=== PATIENT | male | born 1990 | race African-American/Black ===

== ENCOUNTER 2018-09-30 14:17 | Emergency (ER) | payer MEDICAID ==
[~2018-09-30] VITALS: Ht 165.1 cm; Wt 63.5 kg
--- NOTE | 2018-09-30 14:32 | NUR ---
PT A/OX4, PRESENTS TO THE ER C/O GENERALIZED BODY PAIN THAT STARTED TODAY AROUND 1300, NON-PROVOKED, SHOOTING/ACHING IN QUALITY, DOES NOT RADIATE, 8/10, CONSTANT. PT REPORTS HX OF SICKLE CELL DISEASE. VSS. PT DENIES C/P, SOB, N/V/D, DIZZINESS, HEADACHE.
[2018-09-30] MEDS ORDERED: ONDANSETRON 4 MG/2 ML VIAL IV ONE (14:45)
[2018-09-30] MEDS ORDERED: IV NORMAL SALINE 1000 ML BAG IV ONE (14:45)
[2018-09-30] MEDS ORDERED: HYDROMORPHONE 1 MG/1 ML DISP.SYRIN IV ONE ×2 (14:45→15:45)
--- NOTE | 2018-09-30 14:47 | NUR ---
PATIENT WAS MSE BY DR ALICEA IN ROOM 05A.
[2018-09-30] MEDS ORDERED: HYDROMORPHONE 1 MG/1 ML DISP.SYRIN ONE ×2 (14:48→15:48)
[2018-09-30] MEDS ORDERED: ONDANSETRON 4 MG/2 ML VIAL ONE (14:48)
[2018-09-30 15:18] LABS: EOSINOPHILS % (AUTO) 0.7 % (0.0-7.0); HEMATOCRIT 29.2 % (36.7-47.1); HEMOGLOBIN 9.4 g/dL (12.5-16.3); LYMPHOCYTES # (AUTO) 2.5 K/uL (20.0-40.0); LYMPHOCYTES % (AUTO) 63.1 % (20.5-51.5); MEAN CORPUSCULAR HEMOGLOBIN 24.4 uug (23.8-33.4); MEAN CORPUSCULAR HGB CONC 32 g/dL (32.5-36.3); MEAN CORPUSCULAR VOLUME 75.4 fL (73.0-96.2); MONOCYTES # (AUTO) 0.1 K/uL (2.0-10.0); MONOCYTES % (AUTO) 2.2 % (0.0-11.0); NEUTROPHILS # (AUTO) 1.3 K/uL (1.8-8.9); PLATELET COUNT (AUTO) 152 K/uL (152-348); RED BLOOD CELL COUNT(AUTO) 3.87 MIL/uL (4.06-5.63)
[2018-09-30 15:24] LABS: BILIRUBIN,DIRECT 0.2 mg/dL (0.0-0.2); CREATININE 0.9 mg/dL (0.6-1.3); POTASSIUM 3.8 mmol/L (3.5-5.1); TOTAL PROTEIN, SERUM 6.9 g/dL (6.4-8.2)
--- NOTE | 2018-09-30 16:19 | NUR ---
Patient discharged to home in stable conditon. Written and verbal after care instructions given. Patient verbalizes understanding of instructions. ALL BELONGINGS W/ PT. PT SELF-AMBULATED W/O DIFFICULTY. 20G IV ACCESS IN LAC REMOVED PRIOR TO D/C - INNER CANNULA INTACT. PT WILL BE DRIVEN HOME IN PRIVATE VEHICLE BY SIGNIFICANT OTHER.
[2018-09-30 16:21] VITALS: BP 131/75
== END 2018-09-30 16:26 | disposition home or self-care (01) ==
LOC: ER 14:17
DX: D57.1 Sickle-cell disease without crisis (principal); Z88.8 Allergy status to other drugs, medicaments and biological substances
CPT/HCPCS: 36415; 71045; 80048; 80076; 83615; 85025; 96374; 96375; 96376; 99284; J1170 ×2; J2405; A4663; J7030

== ENCOUNTER 2019-04-23 21:42 | Inpatient (IN) | payer MEDICAID, OTHER ==
[~2019-04-23] VITALS: Ht 165.1 cm; Wt 63.5 kg
[2019-04-23] MEDS ORDERED: MORPHINE SULFATE 4 MG/1 ML DISP.SYRIN ONE (22:26)
[2019-04-23] MEDS ORDERED: ONDANSETRON 4 MG/2 ML VIAL ONE (22:26)
[2019-04-23] MEDS ORDERED: ONDANSETRON 4 MG/2 ML VIAL IV ONE (22:30)
[2019-04-23] MEDS ORDERED: IV NORMAL SALINE 1000 ML BAG IV ONE (22:30)
[2019-04-23] MEDS ORDERED: MORPHINE SULFATE 2 MG/1 ML DISP.SYRIN IV ONE (22:30)
[2019-04-23 22:44] LABS: BASOPHILS % (AUTO) 0.5 % (0.0-2.0); EOSINOPHILS # (AUTO) 0.1 K/uL (0.0-0.7); EOSINOPHILS % (AUTO) 2.2 % (0.0-7.0); HEMATOCRIT 34.3 % (36.7-47.1); HEMOGLOBIN 11.1 g/dL (12.5-16.3); LYMPHOCYTES # (AUTO) 0.8 K/uL (20.0-40.0); LYMPHOCYTES % (AUTO) 17.3 % (20.5-51.5); MEAN CORPUSCULAR HEMOGLOBIN 26.1 uug (23.8-33.4); MEAN CORPUSCULAR HGB CONC 33 g/dL (32.5-36.3); MEAN CORPUSCULAR VOLUME 80.5 fL (73.0-96.2); MONOCYTES # (AUTO) 0.4 K/uL (2.0-10.0); MONOCYTES % (AUTO) 9.8 % (0.0-11.0); NEUTROPHILS # (AUTO) 3.1 K/uL (1.8-8.9); NEUTROPHILS % (AUTO) 70.2 % (38.5-71.5); PLATELET COUNT (AUTO) 188 K/uL (152-348); RED BLOOD CELL COUNT(AUTO) 4.26 MIL/uL (4.06-5.63); WHITE BLOOD COUNT (AUTO) 4.4 K/uL (3.6-10.2)
[2019-04-23 22:54] LABS: BILIRUBIN,DIRECT 0.2 mg/dL (0.0-0.2); BILIRUBIN,TOTAL 0.9 mg/dL (0.2-1.0); POTASSIUM 4.1 mmol/L (3.5-5.1); TOTAL PROTEIN, SERUM 7.5 g/dL (6.4-8.2)
--- NOTE | 2019-04-23 23:25 | NUR ---
LAB CALLED: STATES PT IS NEG FOR SICKLE CELL TRAIT
[2019-04-23 23:34] LABS: LYMPHOCYTES % (MANUAL) 45 % (20-40); MONOCYTES % (MANUAL) 14 % (2-10); NEUTROPHILS % (MANUAL) 41 % (42-75)
[2019-04-23] MEDS ORDERED: SWABABLE VALVE TRANSFER SET EA MC ONE (23:36)
[2019-04-23] MEDS ORDERED: IOHEXOL 300MG/ML 100 ML INFUS..BTL ONE (23:36)
[2019-04-23] MEDS ORDERED: IV NORMAL SALINE 250 ML IV ONE (23:36)
[2019-04-24 00:23] LABS: *BILIRUBIN,URIN NEGATIVE (NEGATIVE); *BLOOD, URINE NEGATIVE (NEGATIVE); *CLARITY,URINE CLEAR (CLEAR); *COLOR,URINE YELLOW (YELLOW); *KETONES,URINE NEGATIVE (NEGATIVE); *UROBILINOGEN,URINE 0.2 E.U./dl (NORMAL); LEUKOCYTE ESTERASE ,URINE TRACE (NEGATIVE); NITRITE, URINE NEGATIVE (NEGATIVE); UGLUCOSE NEGATIVE (NEGATIVE)
[2019-04-24 00:32] LABS: BACTERIA,URINE FEW /HPF (NONE SEEN); RBC,URINE 0-3 /HPF (0-3); SQUAMOUS EPITHELIAL CELL,UR FEW /HPF (NONE SEEN)
[2019-04-24] MEDS ORDERED: HYDROMORPHONE 1 MG/1 ML DISP.SYRIN ONE ×2 (00:43→01:46)
[2019-04-24] MEDS ORDERED: HYDROMORPHONE 1 MG/1 ML DISP.SYRIN IV ONE ×3 (00:45→02:45)
[2019-04-24] MEDS ORDERED: PIPERACILLIN/TAZOBACTAM/D5W 50 ML IV ONE (00:55)
[2019-04-24] MEDS ORDERED: PIPERACILLIN SODIUM/TAZOBACTAM 3.375 G in IV DEXTROSE 5% 50 ML IV ONE (01:00)
[2019-04-24] MEDS ORDERED: IV NORMAL SALINE 1000 ML BAG IV ONE (01:00)
[2019-04-24] MEDS ORDERED: ONDANSETRON 4 MG/2 ML VIAL IV ONE (01:45)
[2019-04-24] MEDS ORDERED: ONDANSETRON 4 MG/2 ML VIAL ONE ×2 (01:46→01:51)
--- NOTE | 2019-04-24 02:10 | NUR ---
Pt. admitted to [facility], under care of BERNA RAGLAND DNP Belongs List completed
[2019-04-24] MEDS ORDERED: PROM118S PO (02:18)
[2019-04-24] MEDS ORDERED: ONDANSETRON 4 MG/2 ML VIAL IV PRN (02:30)
[2019-04-24] MEDS ORDERED: ACETAMINOPHEN 325 MG TABLET PO PRN (02:30)
[2019-04-24] MEDS ORDERED: HYDROMORPHONE 2 MG/1 ML DISP.SYRIN ONE (02:39)
[2019-04-24 02:56] VITALS: BP 128/92
--- NOTE | 2019-04-24 03:00 | NUR ---
ADMITTED,ALERT X4 COMPLAINING OF RIGHT FLANK PAIN,GIRLFRIEND AT BEDSIDE. ATE HUNGRY. COMPLAINED OF ABDOMINAL PAIN ,DILAUDID 1 MG GIVEN, IN NO ACUTE DISTRESS,
[2019-04-24] MEDS ORDERED: PIPERACILLIN SODIUM/TAZO 3.375 GM VIAL ONE (03:26)
[2019-04-24] MEDS: IV NS 1000 ML 1,000 ML IV PRN ×2 (04:25→16:57)
[2019-04-24] MEDS: HYDROMORPHONE 1 MG/1 ML DISP.SYRIN IV PRN ×4 (04:26→15:05)
--- NOTE | 2019-04-24 05:12 | NUR ---
UA SENT TO LAB
[2019-04-24] MEDS ORDERED: PIPERACILLIN SODIUM/TAZOBACTAM 3.375 G in IV DEXTROSE 5% 50 ML IV SCH (06:00)
[2019-04-24 07:29] LABS: MAGNESIUM 2.1 mg/dL (1.8-2.4); PHOSPHOROUS 3.1 mg/dL (2.5-4.9); POTASSIUM 3.6 mmol/L (3.5-5.1)
[2019-04-24 07:32] LABS: HEMATOCRIT 31.9 % (36.7-47.1); HEMOGLOBIN 10.3 g/dL (12.5-16.3); MEAN CORPUSCULAR HEMOGLOBIN 26.3 uug (23.8-33.4); MEAN CORPUSCULAR HGB CONC 32 g/dL (32.5-36.3); MEAN CORPUSCULAR VOLUME 81.5 fL (73.0-96.2); PLATELET COUNT (AUTO) 174 K/uL (152-348); RED BLOOD CELL COUNT(AUTO) 3.91 MIL/uL (4.06-5.63); WHITE BLOOD COUNT (AUTO) 4.1 K/uL (3.6-10.2)
[2019-04-24 07:39] LABS: THYROID STIMULATING HORMONE 3.084 mIU/mL (0.358-3.740)
[2019-04-24 10:10] LABS: BASOPHILS % (MANUAL) 1 % (0-2); EOSINOPHILS % (MANUAL) 2 % (0-8); LYMPHOCYTES % (MANUAL) 43 % (20-40); NEUTROPHILS % (MANUAL) 46 % (42-75)
[2019-04-24 10:11] LABS: MONOCYTES % (MANUAL) 8 % (2-10)
[2019-04-24 11:39] VITALS: BP 133/97
[2019-04-24] MEDS: PIPERACILLIN/TAZOBACTAM/D5W 3.375 G in IV DEXTROSE 5% 50 ML IV SCH ×2 (13:17→21:30)
[2019-04-24 15:46] VITALS: BP 147/100
[2019-04-24] MEDS: ONDANSETRON 4 MG/2 ML VIAL IV PRN (16:46)
[2019-04-24] MEDS: HYDROMORPHONE 2 MG/1 ML DISP.SYRIN IV PRN ×2 (18:15→21:24)
[2019-04-24 20:27] VITALS: BP 110/60
[2019-04-25] MEDS: ONDANSETRON 4 MG/2 ML VIAL IV PRN ×5 (00:21→21:52)
[2019-04-25] MEDS: HYDROMORPHONE 2 MG/1 ML DISP.SYRIN IV PRN ×8 (00:24→23:46)
[2019-04-25] MEDS ORDERED: SUCRALFATE 1 G TABLET PO SCH (05:15)
[2019-04-25] MEDS: PIPERACILLIN/TAZOBACTAM/D5W 3.375 G in IV DEXTROSE 5% 50 ML IV SCH ×5 (05:40→22:00)
[2019-04-25 05:49] VITALS: BP 134/96
[2019-04-25] MEDS: PANTOPRAZOLE SODIUM 40 MG TABLET.DR PO SCH (06:25)
[2019-04-25] MEDS: SUCRALFATE 1 G/10 ML LIQUID UDC PO SCH ×4 (06:25→20:35)
--- NOTE | 2019-04-25 08:40 | NUR ---
Received patient in Bed, sleeping. No signs of Distress noted. No SOB. Pain medication was last given at 0750. All needs attended and met. call light within easy reach. Will continue to monitor.
[2019-04-25 11:51] VITALS: BP 138/98
[2019-04-25] MEDS: IV NS 1000 ML 1,000 ML IV PRN (11:57)
[2019-04-25 16:13] VITALS: BP 114/65
--- NOTE | 2019-04-25 18:18 | NUR ---
Patient in bed, awake and verbally responsive. no signs of Distress noted. Pain medication given as ordered. All due medications given as ordered. kept comfortable. Will Endorse to Oncoming Nurse.
[2019-04-25 20:49] VITALS: BP 128/94
[2019-04-25] MEDS ORDERED: METOCLOPRAMIDE HCL 10 MG/2 ML VIAL IV PRN (23:30)
--- NOTE | 2019-04-25 23:30 | NUR ---
Dr. Palma notified of blood clots in emesis and patient refusal for Zosyn tonight despite education. new order for Reglan given, however patient refused because of adverse reactions. emesis is subsided and patient is not requesting any mediations at this time for his emesis/nausea.
[2019-04-26 04:00] VITALS: BP 128/76
[2019-04-26] MEDS: HYDROMORPHONE 2 MG/1 ML DISP.SYRIN IV PRN ×8 (04:31→23:44)
--- NOTE | 2019-04-26 05:53 | NUR ---
patient slept intermittently throughout night. no signs of acute distress and v/s stable throughout shift. all medication administered with no adverse effects except refusal of one dose of Zosyn due last night- Dr. Palma made aware. morning Zosyn administered without refusal. Dilaudid administered 3x throughout shift. safety and comfort measures provided at all times. will continue to monitor and endorse care to morning nurse.
[2019-04-26] MEDS: PIPERACILLIN/TAZOBACTAM/D5W 3.375 G in IV DEXTROSE 5% 50 ML IV SCH ×3 (06:00→21:02)
[2019-04-26] MEDS: PANTOPRAZOLE SODIUM 40 MG TABLET.DR PO SCH (06:00)
[2019-04-26] MEDS: IV NS 1000 ML 1,000 ML IV PRN ×2 (06:01→21:15)
[2019-04-26] MEDS: SUCRALFATE 1 G/10 ML LIQUID UDC PO SCH ×4 (06:30→20:40)
--- NOTE | 2019-04-26 06:32 | NUR ---
patient refused AM labs this morning. will endorse to oncoming shift to inform the
--- NOTE | 2019-04-26 07:00 | NUR ---
PATIENT RESTING IN ROOM- COMPLAINTS OF AB PAIN- SAFETY PRECAUTIONS IN PLACE- PIV INFUSING- RECEIVED BEDSIDE SBAR- WILL CONTINUE TO MONITOR REPORT AND RECORD
[2019-04-26] MEDS: ONDANSETRON 4 MG/2 ML VIAL IV PRN ×3 (08:28→21:00)
--- NOTE | 2019-04-26 10:28 | NUR ---
PATIENT HAS CONCERNS IN REGRDS TO ABX- ID HAS SPOKEN WITH PATIETN AND FAMILY IN REGARDS TO THE IMPORTANCE OF ABX- PIV
[2019-04-26 11:53] VITALS: BP 130/87
[2019-04-26 11:58] LABS: POTASSIUM 3.2 mmol/L (3.5-5.1)
[2019-04-26 12:02] LABS: HEMATOCRIT 35.3 % (36.7-47.1); HEMOGLOBIN 11.3 g/dL (12.5-16.3); MEAN CORPUSCULAR HEMOGLOBIN 25.4 uug (23.8-33.4); MEAN CORPUSCULAR HGB CONC 32 g/dL (32.5-36.3); MEAN CORPUSCULAR VOLUME 79.4 fL (73.0-96.2); PLATELET COUNT (AUTO) 189 K/uL (152-348); RED BLOOD CELL COUNT(AUTO) 4.44 MIL/uL (4.06-5.63); WHITE BLOOD COUNT (AUTO) 3.9 K/uL (3.6-10.2)
[2019-04-26] MEDS ORDERED: POTASSIUM CHLORIDE 20 MEQ TAB.PRT.SR PO ONE (12:15)
[2019-04-26 12:47] LABS: LYMPHOCYTES % (MANUAL) 23 % (20-40); MONOCYTES % (MANUAL) 4 % (2-10); NEUTROPHILS % (MANUAL) 73 % (42-75)
[2019-04-26 15:47] VITALS: BP 114/75
[2019-04-26] MEDS: PROMETHAZINE HCL 25 MG TABLET PO PRN ×2 (16:10→23:58)
[2019-04-26] MEDS: MEGESTROL ACETATE 20 MG TABLET PO SCH (18:55)
--- NOTE | 2019-04-26 19:30 | NUR ---
Received patient in bed awake, A&Ox4. No complaints of pain at this time. IV on R FA intact and patent. Safety measures observed. Call light in reach
[2019-04-26 20:20] VITALS: BP 131/80
[2019-04-26] MEDS: ZOLPIDEM 5 MG TABLET PO PRN (23:58)
[2019-04-27] MEDS: ONDANSETRON 4 MG/2 ML VIAL IV PRN ×3 (01:44→16:13)
[2019-04-27] MEDS: HYDROMORPHONE 2 MG/1 ML DISP.SYRIN IV PRN ×11 (01:46→22:35)
[2019-04-27 05:40] VITALS: BP 120/84
[2019-04-27] MEDS: PIPERACILLIN/TAZOBACTAM/D5W 3.375 G in IV DEXTROSE 5% 50 ML IV SCH ×3 (05:43→21:16)
[2019-04-27] MEDS: PANTOPRAZOLE SODIUM 40 MG TABLET.DR PO SCH (06:28)
--- NOTE | 2019-04-27 06:51 | NUR ---
Patient slept intermittently. c/o 01/21 R sided flank pain, medicated w/ PRN Dilaudid 2mg Q2. All needs attended. Will endorse accordingly
[2019-04-27] MEDS: SUCRALFATE 1 G/10 ML LIQUID UDC PO SCH ×4 (08:11→20:31)
--- NOTE | 2019-04-27 08:20 | NUR ---
Received patient awake in bed. AAOx4. Patient complaining of abdominal pain; will medicate appropriately. No SOB noted. Safety measures implemented. Call light within reach. Will continue to monitor.
[2019-04-27] MEDS: MEGESTROL ACETATE 20 MG TABLET PO SCH ×2 (10:28→17:11)
[2019-04-27 11:30] VITALS: BP 134/94
[2019-04-27 11:47] VITALS: BP 134/94
[2019-04-27 15:22] VITALS: BP 108/55
--- NOTE | 2019-04-27 18:36 | NUR ---
Patient verbalized having R sided flank pain throughout shift. Medicated appropriately with PRN Dilaudid q2hr. Patient tolerated. No s/s of acute distress at this time. All needs met. Comfort provided at all times. Will endorse accordingly.
[2019-04-27 20:47] VITALS: BP 121/80
--- NOTE | 2019-04-27 21:32 | NUR ---
Received patient awake in bed. AO x 4. Immediate needs attended. No distress noted in the patient at this time. Comfort provided. Safety protocols in place. Will monitor the patient accordingly throughout shift.
[2019-04-28] MEDS: HYDROMORPHONE 2 MG/1 ML DISP.SYRIN IV PRN ×8 (00:40→17:14)
[2019-04-28] MEDS: ZOLPIDEM 5 MG TABLET PO PRN (01:44)
--- NOTE | 2019-04-28 02:00 | NUR ---
Pt. called for pain medication. When pt. approach to be informed that medication is not yet due, patient noted, in bed, holding cell phone, dozing on and off, swaying back and forth. No respiratory distress noted. Notified propellant charge loader. Bed alarm on.
--- NOTE | 2019-04-28 05:05 | NUR ---
Patient slept intermittently throughout the night. Patient complained of right sided abdominal pain throughout shift. Managed pain appropriately with PRN pain medication. No signs of acute distress at the moment or any respiratory distress. Patient tolerated medications. All needs attended. Safety precautions in place. Will endorse to oncoming shift.
[2019-04-28] MEDS: ONDANSETRON 4 MG/2 ML VIAL IV PRN (05:25)
[2019-04-28] MEDS: PIPERACILLIN/TAZOBACTAM/D5W 3.375 G in IV DEXTROSE 5% 50 ML IV SCH ×2 (05:45→14:34)
[2019-04-28] MEDS: PANTOPRAZOLE SODIUM 40 MG TABLET.DR PO SCH (06:13)
[2019-04-28 06:41] VITALS: BP 155/62
[2019-04-28 06:45] LABS: POTASSIUM 3.6 mmol/L (3.5-5.1)
[2019-04-28 06:55] LABS: HEMATOCRIT 31.3 % (36.7-47.1); HEMOGLOBIN 10.2 g/dL (12.5-16.3); MEAN CORPUSCULAR HEMOGLOBIN 26.1 uug (23.8-33.4); MEAN CORPUSCULAR HGB CONC 33 g/dL (32.5-36.3); MEAN CORPUSCULAR VOLUME 79.9 fL (73.0-96.2); PLATELET COUNT (AUTO) 163 K/uL (152-348); RED BLOOD CELL COUNT(AUTO) 3.92 MIL/uL (4.06-5.63); WHITE BLOOD COUNT (AUTO) 5.5 K/uL (3.6-10.2)
--- NOTE | 2019-04-28 07:15 | NUR ---
Patient received in room asleep, no acute distress noted. IVF infusing well. appears comfortable at this time. comfort measures provided. call light within reach. will continue to monitor closely.
[2019-04-28] MEDS: SUCRALFATE 1 G/10 ML LIQUID UDC PO SCH ×3 (07:50→17:17)
[2019-04-28 07:58] LABS: EOSINOPHILS % (MANUAL) 3 % (0-8); LYMPHOCYTES % (MANUAL) 34 % (20-40); MONOCYTES % (MANUAL) 11 % (2-10); NEUTROPHILS % (MANUAL) 52 % (42-75)
[2019-04-28] MEDS: MEGESTROL ACETATE 20 MG TABLET PO SCH ×2 (09:07→17:17)
[2019-04-28 11:47] VITALS: BP 130/95
[2019-04-28] MEDS: IV NS 1000 ML 1,000 ML IV PRN (12:15)
[2019-04-28 16:21] VITALS: BP 129/81
--- NOTE | 2019-04-28 18:04 | NUR ---
Patient in room with significant other. appears anxious and easily agitated. right flank pain managed by dilaudid 2mg every 2 hrs. otherwise no significant change of condition. Showered today. all needs attended and anticipated. awaiting pain management consult with Dr. Griffin. call light within reach. will endorse accordingly.
--- NOTE | 2019-04-28 18:29 | NUR ---
Patient insisting on leaving AMA, risks of leaving AMA explained to patient by RN and charge nurse. patient still insists on leaving. refuses to sign AMA form. midline removed, ID band disposed of appropriately. Addendum: 04/28/19 at 1843 by SHUKRI US RN Patient left hospital AMA in stable condition last V/S WNL, independent and ambulatory.
== END 2019-04-28 18:40 | disposition left against medical advice (07) | DRG 463 ==
LOC: ER 21:45 → MEDSURG3 04-24 02:23
PROVIDERS: ADMIT Nurse Practitioner Acute Care; ATTEND Nurse Practitioner Acute Care
PROC: 05HC33Z Insertion of Infusion Device into Left Basilic Vein, Percutaneous Approach (ICD-10-PCS; principal; 2019-04-27)
DX: N15.1 Renal and perinephric abscess (principal); D57.1 Sickle-cell disease without crisis; N12 Tubulo-interstitial nephritis, not specified as acute or chronic; G89.4 Chronic pain syndrome; Z79.891 Long term (current) use of opiate analgesic; R11.0 Nausea; K42.9 Umbilical hernia without obstruction or gangrene; F12.90 Cannabis use, unspecified, uncomplicated; E87.6 Hypokalemia
CPT/HCPCS: 36415; 36569; 70030-TC; 71045; 76770; 83615; 83690; 83735; 84100; 84443; 85025; 85730; 87086; 93005; A4663; G0378; J1170; J2270; J2405; J2543; J7030; J7050; J7060; Q0169; Q9967

== ENCOUNTER 2019-05-01 03:48 | Emergency (ER) | payer OTHER ==
[~2019-05-01 03:48] MED LIST: PROM118S PO
--- NOTE | 2019-05-01 04:20 | NUR ---
1ST TRIAGE CALL
--- NOTE | 2019-05-01 04:49 | NUR ---
2ND TRIAGE CALLED.
--- NOTE | 2019-05-01 05:08 | NUR ---
3RD TRIAGE CALL. NO ANSWER, PT NOT IN WAITING ROOM.
== END 2019-05-01 05:10 | disposition left against medical advice (07) ==
LOC: ER 03:50
DX: Z53.21 Procedure and treatment not carried out due to patient leaving prior to being seen by health care provider (principal)
CPT/HCPCS: A4663; J7030

== ENCOUNTER 2019-05-01 06:18 | Emergency (ER) | payer OTHER ==
[~2019-05-01] VITALS: Ht 165.1 cm; Wt 63.5 kg
--- NOTE | 2019-05-01 07:01 | NUR ---
DR. REBOLLAR AT BEDSIDE FOR MSE.
[2019-05-01] MEDS ORDERED: HYDROMORPHONE 2 MG/1 ML DISP.SYRIN ONE ×2 (07:14→08:28)
[2019-05-01] MEDS ORDERED: ONDANSETRON 4 MG/2 ML VIAL ONE ×2 (07:14→08:28)
[2019-05-01] MEDS ORDERED: IV NORMAL SALINE 1000 ML BAG IV ONE ×2 (07:15→08:30)
[2019-05-01] MEDS ORDERED: ONDANSETRON 4 MG/2 ML VIAL IV ONE ×2 (07:15→08:30)
[2019-05-01] MEDS ORDERED: HYDROMORPHONE 1 MG/1 ML DISP.SYRIN IV ONE ×2 (07:15→08:30)
--- NOTE | 2019-05-01 07:18 | NUR ---
PATIENT IS AWAKE AND ALERT. C/O PAIN.
[2019-05-01 07:36] LABS: HEMATOCRIT 34.8 % (36.7-47.1); HEMOGLOBIN 11.1 g/dL (12.5-16.3); MEAN CORPUSCULAR HEMOGLOBIN 25.4 uug (23.8-33.4); MEAN CORPUSCULAR HGB CONC 32 g/dL (32.5-36.3); MEAN CORPUSCULAR VOLUME 79.5 fL (73.0-96.2); PLATELET COUNT (AUTO) 167 K/uL (152-348); RED BLOOD CELL COUNT(AUTO) 4.38 MIL/uL (4.06-5.63); WHITE BLOOD COUNT (AUTO) 3.9 K/uL (3.6-10.2)
[2019-05-01 07:58] LABS: BASOPHILS % (MANUAL) 1 % (0-2); EOSINOPHILS % (MANUAL) 2 % (0-8); LYMPHOCYTES % (MANUAL) 27 % (20-40); MONOCYTES % (MANUAL) 8 % (2-10); NEUTROPHILS % (MANUAL) 62 % (42-75)
--- NOTE | 2019-05-01 08:22 | NUR ---
PATIENT STATES PAIN IS "STILL BAD". DR REBOLLAR WAS AT BEDSIDE SPEAKING TO PATIENT.
[2019-05-01] MEDS ORDERED: CEFTRIAXONE /D5W 50ML IVPB **ER PYXIS IV ONE (08:28)
[2019-05-01] MEDS ORDERED: CEFTRIAXONE 1 G in IV DEXTROSE 5% 50 ML IV ONE (08:30)
[2019-05-01 08:48] LABS: *BILIRUBIN,URIN NEGATIVE (NEGATIVE); *BLOOD, URINE NEGATIVE (NEGATIVE); *CLARITY,URINE CLEAR (CLEAR); *COLOR,URINE YELLOW (YELLOW); *KETONES,URINE NEGATIVE (NEGATIVE); LEUKOCYTE ESTERASE ,URINE NEGATIVE (NEGATIVE); NITRITE, URINE NEGATIVE (NEGATIVE); UGLUCOSE NEGATIVE (NEGATIVE)
[2019-05-01 08:54] LABS: BACTERIA,URINE NONE SEEN /HPF (NONE SEEN); RBC,URINE 0-3 /HPF (0-3); SQUAMOUS EPITHELIAL CELL,UR MODERATE /HPF (NONE SEEN)
--- NOTE | 2019-05-01 09:12 | NUR ---
MEDS WERE GIVEN. PATIENT STATES PAIN HAS DIMINSHED. DENIES NAUSEA. STATES UNDERSTANDS ALL PRECAUTIONS ABOUT DILAUDID , STATES DOES NOT DRIVE.
--- NOTE | 2019-05-01 09:12 | NUR ---
IV removed. Catheter intact and site benign. Pressure and 4x4 gauze applied to site. No bleeding noted.
--- NOTE | 2019-05-01 09:12 | NUR ---
DC, RX AND FOLLOW UP INSTRUCTIONS GIVEN AND EXPLAINED TO PATIENT WHO STATES SHE UNDERSTANDS ALL INSTRUCTIONS.
[2019-05-01 09:13] VITALS: BP 122/76
== END 2019-05-01 09:15 | disposition home or self-care (01) ==
LOC: ER 06:20
DX: N15.1 Renal and perinephric abscess (principal); R11.2 Nausea with vomiting, unspecified; Z88.8 Allergy status to other drugs, medicaments and biological substances; Z79.899 Other long term (current) drug therapy
CPT/HCPCS: 36415; 81000; 81001; 85007; 85025; 87086; 96361; 96365; 96375; 96376; 99283; J0696; J1170 ×2; J2405 ×2; 70030-TC; A4663; J7030

== ENCOUNTER 2019-05-02 11:48 | Emergency (ER) | payer OTHER ==
[~2019-05-02] VITALS: Ht 165.1 cm; Wt 63.5 kg
[2019-05-02] MEDS ORDERED: CEFTRIAXONE 1 G in IV DEXTROSE 5% 50 ML IV ONE (12:15)
[2019-05-02] MEDS ORDERED: IV NORMAL SALINE 1000 ML BAG IV ONE (12:15)
[2019-05-02 12:23] LABS: BASOPHILS % (AUTO) 0.5 % (0.0-2.0); EOSINOPHILS % (AUTO) 0.3 % (0.0-7.0); HEMOGLOBIN 11.9 g/dL (12.5-16.3); LYMPHOCYTES # (AUTO) 3.5 K/uL (20.0-40.0); LYMPHOCYTES % (AUTO) 67.7 % (20.5-51.5); MEAN CORPUSCULAR HEMOGLOBIN 25.8 uug (23.8-33.4); MEAN CORPUSCULAR HGB CONC 32 g/dL (32.5-36.3); MEAN CORPUSCULAR VOLUME 80.2 fL (73.0-96.2); MONOCYTES # (AUTO) 0.1 K/uL (2.0-10.0); NEUTROPHILS # (AUTO) 1.5 K/uL (1.8-8.9); NEUTROPHILS % (AUTO) 29.5 % (38.5-71.5); PLATELET COUNT (AUTO) 157 K/uL (152-348); RED BLOOD CELL COUNT(AUTO) 4.62 MIL/uL (4.06-5.63); WHITE BLOOD COUNT (AUTO) 5.1 K/uL (3.6-10.2)
[2019-05-02] MEDS ORDERED: CEFTRIAXONE 1 G VIAL ONE (12:29)
[2019-05-02 12:30] LABS: CREATININE 0.9 mg/dL (0.6-1.3); POTASSIUM 3.6 mmol/L (3.5-5.1)
[2019-05-02] MEDS ORDERED: OXYCODONE/APAP 5-325 MG TABLET ONE (12:30)
[2019-05-02 12:36] LABS: BILIRUBIN,DIRECT 0.2 mg/dL (0.0-0.2); BILIRUBIN,TOTAL 1.3 mg/dL (0.2-1.0); TOTAL PROTEIN, SERUM 8.2 g/dL (6.4-8.2)
[2019-05-02 12:38] LABS: *BILIRUBIN,URIN NEGATIVE (NEGATIVE); *BLOOD, URINE NEGATIVE (NEGATIVE); *CLARITY,URINE CLEAR (CLEAR); *COLOR,URINE YELLOW (YELLOW); *KETONES,URINE NEGATIVE (NEGATIVE); LEUKOCYTE ESTERASE ,URINE NEGATIVE (NEGATIVE); NITRITE, URINE NEGATIVE (NEGATIVE); UGLUCOSE NEGATIVE (NEGATIVE)
[2019-05-02] MEDS ORDERED: HYDROMORPHONE 1 MG/1 ML DISP.SYRIN IM ONE (12:45)
[2019-05-02] MEDS ORDERED: HYDROMORPHONE 1 MG/1 ML DISP.SYRIN ONE (12:51)
[2019-05-02] MEDS: OXYCODONE/APAP 5-325 MG TABLET PO ONE ×2 (12:54→12:56)
--- NOTE | 2019-05-02 12:55 | NUR ---
For med-surgical admission, pending 3rd flr bed & nurse assignment, hands off report given to primary RN Benjamin
--- NOTE | 2019-05-02 14:36 | NUR ---
Patient does not wish to proceed with medical care recommended by Dr. Baptiste. Patient given information related to possible complications, up to and including , which could occur as a result of leaving the hospital at this time. Patient verbalizes understanding of risks involved due to leaving against medical advice. Patient has signed AMA form.
== END 2019-05-02 14:39 | disposition left against medical advice (07) ==
LOC: ER 11:48
DX: N15.1 Renal and perinephric abscess (principal); D57.1 Sickle-cell disease without crisis; Z76.5 Malingerer [conscious simulation]; Z88.8 Allergy status to other drugs, medicaments and biological substances; Z79.899 Other long term (current) drug therapy
CPT/HCPCS: 36415; 80048; 80076; 81001; 83605; 83690; 85025; 87040 ×2; 87086; 96365; 96372; 99283; J0696; J1170; A4663; J3490